=== PATIENT | female | born 1955 | race Caucasian/White ===

== ENCOUNTER 2024-09-09 07:56 | Oncology outpatient (recurring) (ONCR) | payer MEDICARE, SELFPAY ==
[2024-09-09] MEDS: sodium chloride 0.9% 500 ML 130 ML IV (08:16)
== END 2024-09-21 23:59 | disposition home or self-care (01) ==
LOC: ONCMED 08:00
PROVIDERS: Family Provider Nurse Practitioner Family; PCP Nurse Practitioner Family; Visit Provider Nurse Practitioner Family
DX: E86.0 Dehydration (principal); Z79.899 Other long term (current) drug therapy
CPT/HCPCS: 96360; 96361; J7040